=== PATIENT | female | born 1980 | race American Indian/Alaskan Native ===

== ENCOUNTER 2022-03-30 14:46 | Emergency (ER) | payer SELFPAY ==
[2022-03-30 15:17] VITALS: BP 120/70
== END 2022-03-31 00:54 | disposition left against medical advice (07) ==
LOC: ED 14:46
DX: N93.9 Abnormal uterine and vaginal bleeding, unspecified (principal); Z53.21 Procedure and treatment not carried out due to patient leaving prior to being seen by health care provider